=== PATIENT | female | born 1995 | race Hispanic/Latino ===

== ENCOUNTER 2023-08-05 09:48 | Emergency (ER) | payer SELFPAY ==
--- NOTE | ~2023-08-05 | US_ITS ---
EXAMINATION: US OB limited DATE: 08/05/2023 12:47 INDICATION: Right lower quadrant abdominal pain. TECHNIQUE: Real-time ultrasound of the pelvis was performed. COMPARISON: None. FINDINGS: There is a single fetus in breech presentation. The placenta is posterior, 1.1 cm in the cervix. Fet al heart rate is 141 beats per minute (bpm). The amniotic fluid volume is subjectively normal. The ce rvical length is normal on transabdominal images and measures greater than 5 cm. The ovaries are not visualized. IMPRESSION: 1. Single living fetus in breech presentation. 2. Low-lying placenta. Reviewed, dictated and finalized at location A.
[2023-08-05 09:57] VITALS: BP 120/74; PULSE 89; RESP 14; TEMP 36.3; O2SAT 100
[2023-08-05 10:55] LABS: Basophils Percent Auto 0.1 % (0.2-1.2); Eosinophils Absolute Auto 0.1 K/mm3 (0-0.3); Eosinophils Percent Auto 0.7 % (0-4.4); Hematocrit 35.3 % (37.0-47.0); Hemoglobin 11.7 g/dL (12.0-15.0); Immature Granulocyte Absolute 0.04 K/mm3 (0.00-0.031); Immature Granulocyte Percent A 0.5 % (0-0.5); Lymphocytes Absolute Auto 1.98 K/mm3 (0.9-3.2); Lymphocytes Percent Auto 23.7 % (18.3-44.2); Mean Corpuscular HGB Conc 33.1 g/dl (32-36); Mean Corpuscular Volume 87.6 fl (80-100); Mean Platelet Volume 10.6 fl (7.4-10.4); Monocytes Absolute Auto 0.4 K/mm3 (0.1-0.6); Monocytes Percent Auto 4.9 % (2.6-8.5); Neutrophils Absolute Auto 5.9 K/mm3 (1.3-6.7); Neutrophils Percent Auto 70.1 % (45.5-73.1); Platelet Count Result 225 k/mm3 (150-375); Red Blood Count 4.03 M/mm3 (4.2-5.4); Red Cell Distribution Width 13.9 % (11.5-14.5); White Blood Count 8.4 K/mm3 (4.5-10.0)
[2023-08-05 11:01] LABS: Appearance Urine Cloudy (Clear); Bacteria Urine Rare /hpf; Bilirubin Urine Negative (Negative); Blood Urine Negative (Negative); Color Urine Yellow (Yellow); Glucose Urine UA Negative (Negative); Ketones Urine Negative (Negative); Leukocyte Esterase Ur Negative LEU/UL (Negative); Nitrate Urine Negative (Negative); Non Pathogenic Casts 0-2; Protein Urine Negative (Negative); RBC Urine 0-2 /hpf (0-2); Specific Grav Ur 1.012 (1.001-1.035); Squamous Epithelial Cell Urine Occasional /hpf (Few); Urobilinogen Urine 0.2 mg/dL (<2.0); WBC Urine 0-5 /hpf (0-3); pH Urine 8.5 (5.0-9.0)
[2023-08-05 11:03] LABS: Add Urine Microscopic? YES
[2023-08-05 11:06] LABS: Alanine Aminotransferase 20 U/L (6-35); Albumin Level 3.7 g/dL (3.5-5.1); Alkaline Phosphatase 58 U/L (38-126); Anion Gap 4 mmol/L (4-12); Aspartate Amino Transferase 27 U/L (14-36); Bilirubin,Total 0.6 mg/dL (0.2-1.3); Blood Urea Nitrogen 8 mg/dL (7-17); Calcium 9.1 mg/dL (8.4-10.2); Carbon Dioxide 23 mmol/L (22-30); Chloride 106 mmol/L (98-107); Estimated Glomerular Filt Rate > 60; Glucose 77 mg/dL (65-110); Potassium 3.9 mmol/L (3.4-5.0); Sodium 133 mmol/L (137-145)
[2023-08-05] MEDS: SODIUM CHLORIDE 0.9% IV 1,000 ML 999 ML IV CONT (11:12)
--- NOTE | 2023-08-05 11:32 | ED.ABDPAIN ---
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 Patient is primarily [place]-speaking. [employer] wind energy systems installer was utilized for assistance with translation. Patient is and currently 19 weeks gestation. She reports she had an ultrasound at 12 weeks gestation but is unsure of results of this. She has been seeing [facility] for her care, unsure of who OBGYN is. Next appointment is 08/18. Patient reports having pain in her right-sided abdomen, radiating around to her back intermittently for the last 1 week. She reports having pressure with urination, dribbling of urine, intermittent dysuria, subjective fevers last night. Denies hematuria or vaginal bleeding. Denies significant nausea or vomiting. Related Data Allergies Allergy/AdvReac Type Severity Reaction Status Date / Time No Known Allergies Allergy Verified 08/05/23 10:02 Review of Systems Review of Systems: CONSTITUTIONAL: Denies fever, chills, or sweats. GASTROINTESTINAL: See HPI. GENITOURINARY: See HPI. Denies vaginal bleeding. MUSCULOSKELETAL: See HPI. All systems reviewed & are unremarkable except as noted in HPI and below Exam Narrative: GENERAL: Well appearing, obese with BMI of 30.0, non-toxic, in no acute distress. HEAD: Normocephalic, atraumatic. RESPIRATORY: Airway patent, respirations nonlabored. Clear to auscultation bilaterally, no rales, rhonchi, wheezing. CARDIOVASCULAR: Regular rate and rhythm without murmurs, rubs, or gallops. ABDOMINAL: Soft, uterus gravid below umbilicus, mild tenderness throughout right-sided lower abdomen. Mild Positive CVA tenderness on right. Normoactive BS. MUSCULOSKELETAL: Moves all extremities. No gross deformities. SKIN: Warm, dry, normal color. NEURO: A&O X3. Speech clear. PSYCHIATRIC: Appropriate mood and affect. Normal interaction. Course Vital Signs Vital signs: Vital Signs Temperature 97.4 F L 08/05/23 09:57 Pulse Rate 89 08/05/23 09:57 Respiratory Rate 14 08/05/23 09:57 Blood Pressure 120/74 08/05/23 09:57 Pulse Oximetry 100 08/05/23 09:57 Oxygen Delivery Room Air 08/05/23 09:57 Temperature 97.4 F L 08/05/23 09:57 Pulse Rate 73 08/05/23 17:08 Respiratory Rate 19 08/05/23 17:08 Blood Pressure 116/79 08/05/23 17:08 Pulse Oximetry 100 08/05/23 17:08 Oxygen Delivery Room Air 08/05/23 09:57 MDM - Abdominal Pain MDM Narrative Medical decision making narrative: Patient presented to ED with right lower abdominal pain, R flank pain. Currently 19 weeks gestation. . Vitals are stable. Patient in no acute distress. Laboratory studies are unremarkable. No leukocytosis. Hemoglobin of 11.7. Patient denies any current or recent bleeding. No vaginal bleeding. No records to compare to. CMP unremarkable. Stable kidney function. Lactic acid within normal limits at 1.0. Urinalysis cloudy, but no evidence of infection. FHT appropriate at 140s. Ultrasound obtained and showing live IUP, good heart tones, placenta is low lying, which I discussed with bank vault custodian can be normal for 19 weeks. Low suspicion for appendicitis given lack of leukocytosis, prolonged nature of pain, no N/V/fevers. Low suspicion for pyelo given normal UA. Discussed case and symptoms with Dr. Tobias ObGYN cashier and salesperson, advised could be having some urinary retention/hesitancy, possible prolapse after multiple pregnancies? Advised OP f/u. Recommended pelvic rest for low lying placenta until repeat US. Discussed lab and imaging findings with patient. She is feeling better with supportive therapy. Recommended she have close f/u with her OBGYN for further evaluat
[2023-08-05] MEDS: ACETAMINOPHEN 500 MG TABLET 1000 MG PO (12:39)
[2023-08-05 13:01] VITALS: BP 114/77; PULSE 69; RESP 18; O2SAT 100
[2023-08-05 17:08] VITALS: BP 116/79; PULSE 73; RESP 19; O2SAT 100
== END 2023-08-05 17:09 | disposition home or self-care (01) ==
PROVIDERS: Emergency Provider Physician Assistant; Referring Provider Family Medicine
DX: O26.892 Other specified pregnancy related conditions, second trimester (principal); R10.9 Unspecified abdominal pain; R39.198 Other difficulties with micturition; O44.42 Low lying placenta NOS or without hemorrhage, second trimester; O32.1XX0 Maternal care for breech presentation, not applicable or unspecified; Z3A.19 19 weeks gestation of pregnancy
CPT/HCPCS: 36415; 76815; 80053; 81001; 83605; 85025; 85461; 86850; 86900; 86901; 96360; 99284; A9270; J7030